=== PATIENT | male | born 1960 | race Caucasian/White ===

== ENCOUNTER 2017-07-20 13:48 | Emergency (ER) | payer OTHER, MEDICAID ==
[~2017-07-20] VITALS: Ht 180.3 cm; Wt 97.5 kg
[2017-07-20 13:58] VITALS: BP 134/88
[2017-07-20] MEDS ORDERED: HYDROcodone-ACET 10/325MG TAB PO ONE (14:30)
[2017-07-20] MEDS ORDERED: KETOROLAC TROMETH 60MG/2ML VIAL IM ONE (14:30)
== END 2017-07-20 14:34 | disposition home or self-care (01) ==
LOC: ER 13:48
DX: M54.16 Radiculopathy, lumbar region (principal)
CPT/HCPCS: 96372; 99283; J1885